=== PATIENT | female | born 1940 | race Caucasian/White ===

== ENCOUNTER → 2016-10-09 | Outpatient (CLI) | payer MEDICARE, OTHER ==
--- NOTE | 2016-10-10 20:28 | CT ---
Procedure: CT SINUSES WITHOUT IV CONTRAST Exam Date: 10/09/2016 1:37 PM CDT Ordering Provider: ADOLFO CARTER Clinical Indication: CHRONIC MAXILLARY SINUSITIS Comparison: None TECHNIQUE: Using a helical scanner, sequential axial imaging of the paranasal sinuses was obtained. 2-D coronal and sagittal reconstructed images were obtained. FINDINGS: The frontal sinuses are clear. The ethmoid air cells are clear bilaterally. The sphenoid sinuses are clear. There is mild frothy secretion seen within the right greater than left maxillary sinus. The maxillary sinuses are hypoplastic. There is a normal-appearing infundibulum and uncinate process, however there is a thin focus of soft tissue attenuation obstructing the right ostiomeatal unit best seen on coronal images 25-27. There is a thin region of patency seen within the left ostiomeatal unit. Small left greater than right miki bullosa within the middle turbinates. There is a slightly rightward deviating osseous as well as membranous nasal septum. The visualized portions of the middle ear cavities and mastoid air cells are clear bilaterally. There are no osseous lesions. IMPRESSION 1. Mild mucosal thickening seen within the right more so than left maxillary sinus with hypoplasia of the maxillary sinuses. Normal uncinate process and infundibulum yet there is soft tissue attenuation mildly obstructing the right ostiomeatal unit. 2. Remainder of the paranasal sinuses are well-aerated. 3. Mild rightward deviation of the osseous and membranous nasal septum. Electronically signed by: Krystian Myers MD 10/10/2016 8:28 PM CDT
== END ==
LOC: CT 13:27
PROVIDERS: ATTEND Otolaryngology Otolaryngology/Facial Plastic Surgery
DX: J32.0 Chronic maxillary sinusitis (principal)

== ENCOUNTER → 2016-12-14 | Outpatient (CLI) | payer MEDICARE, OTHER | END | disposition home or self-care (01) | LOC: GMAB 10:08 | PROVIDERS: ATTEND Family Medicine | DX: Z79.899 Other long term (current) drug therapy (principal) ==

== ENCOUNTER → 2017-03-03 | Outpatient (CLI) | payer MEDICARE, OTHER | LOC: MAMMO 08:02 | PROVIDERS: ATTEND Family Medicine | DX: Z12.31 Encounter for screening mammogram for malignant neoplasm of breast (principal) ==

== ENCOUNTER 2017-04-07 07:00 | Day surgery (SDC) | payer MEDICARE, OTHER ==
[~2017-04-07 07:00] MED LIST: LACTATED RINGERS 1,000 ML ONE
--- NOTE | 2017-04-07 08:55 | OP ---
DATE OF PROCEDURE: 04/07/17 PREPROCEDURE DIAGNOSIS: 1. Average risk colon cancer screening. POSTPROCEDURE DIAGNOSIS: 1. Diverticulosis. 2. Internal hemorrhoids. PROCEDURE: 1. Colonoscopy. SURGEON: Frandy Gupta MD. SEDATION: Monitored anesthesia care. ESTIMATED BLOOD LOSS: 0 mL. PROCEDURE: Informed consent was obtained prior to sedation. The preprocedure cardiopulmonary assessment was satisfactory. The patient was brought to the Endoscopy Suite and placed in the left lateral decubitus position. The patient was then sedated by the anesthesia team. Digital rectal exam revealed no abnormalities. The tip of the Olympus colonoscope was inserted into the rectum and advanced under direct visualization to the terminal ileum. The cecum was identified by the presence of the appendiceal orifice and ileocecal valve. Upon reaching the terminal ileum, the endoscope was slowly withdrawn from the patient with careful attention paid to the entire colonic mucosa for the identification of any flat polyps or small vascular lesions. There were no polyps seen in the entire colon. In the sigmoid colon, there were a few scattered diverticula. Retroflexed view of the anal verge showed small, non- bleeding internal hemorrhoids. Of note, pictures were not taken during this exam due to a malfunction of the endoscope whereby the image capture button was not functional. The endoscope was then withdrawn from the patient and the procedure terminated. RECOMMENDATION: 1. Discharge the patient home. 2. Resume regular diet. 3. Would not recommend further colorectal cancer screening given this patient's age and absence of polyps. #[id number] [facility]
[2017-04-07 10:40] VITALS: O2SAT 95
[2017-04-07 10:42] VITALS: BP 118/78; TEMP 97.4
[2017-04-07] MEDS ORDERED: LIDOCAINE 1% 10 ML VIAL INJ ONE (12:00)
[2017-04-07] MEDS ORDERED: PROPOFOL 200 MG/20 ML VIAL IV ONE (12:00)
== END 2017-04-07 09:20 | disposition home or self-care (01) ==
LOC: AMB 07:00
PROVIDERS: ATTEND Internal Medicine Gastroenterology
DX: Z12.11 Encounter for screening for malignant neoplasm of colon (principal); K57.30 Diverticulosis of large intestine without perforation or abscess without bleeding; K64.8 Other hemorrhoids; K21.9 Gastro-esophageal reflux disease without esophagitis; Z87.891 Personal history of nicotine dependence; Z79.899 Other long term (current) drug therapy
CPT/HCPCS: 00810; G0121; J3490; J7120

== ENCOUNTER → 2017-11-29 | Outpatient (CLI) | payer MEDICARE, OTHER ==
--- NOTE | 2017-11-29 09:28 | RAD ---
EXAM DESCRIPTION: Knee,Right Complete CLINICAL HISTORY: 76 years Female, KNEE PAIN TECHNIQUE:4 views of the right knee were performed. COMPARISON: None available. FINDINGS: The visualized bones appear well mineralized. No acute fracture or dislocation. No evidence of suprapatellar joint effusion. The soft tissues appear grossly unremarkable. Mild tricompartmental osteoarthritis. IMPRESSION: Mild tricompartmental osteoarthritis. Electronically signed by: Ember Huang MD 11/29/2017 9:27 AM CDT
--- NOTE | 2017-11-29 09:29 | RAD ---
EXAM DESCRIPTION: Pelvis CLINICAL HISTORY: 76 years Female, PELVIC PAIN COMPARISON: None. TECHNIQUE: AP radiograph of the pelvis was performed. FINDINGS: The pelvic ring appears grossly intact on this single AP radiograph. No acute fracture or dislocation. Bilateral sacroiliac joints appear normal. Mild osteoarthritis of bilateral hip joints. The visualized lumbo-sacral spine demonstrates mild degenerative changes. IMPRESSION: Single AP radiograph of the pelvis demonstrates grossly intact pelvic ring. Mild bilateral hip osteoarthritis. Electronically signed by: Ember Huang MD 11/29/2017 9:27 AM CDT
== END ==
LOC: RAD 07:40
PROVIDERS: ATTEND Orthopaedic Surgery
DX: M25.561 Pain in right knee (principal); M25.551 Pain in right hip; M17.11 Unilateral primary osteoarthritis, right knee; M16.0 Bilateral primary osteoarthritis of hip

== ENCOUNTER → 2017-12-16 | Outpatient (CLI) | payer MEDICARE, OTHER | LOC: GMATM 17:54 | PROVIDERS: ATTEND Nurse Practitioner Family | DX: R10.13 Epigastric pain (principal) ==

== ENCOUNTER → 2018-03-07 | Outpatient (CLI) | payer MEDICARE, OTHER ==
--- NOTE | 2018-03-09 08:37 | MAM ---
EXAM DESCRIPTION: 3D Screening BILATERAL : Digital Mammography. CLINICAL HISTORY: 77 years Female SCREENING . No personal history or family history of breast cancer. Childbirth. Postmenopausal. No HRT.. Lifetime risk of developing breast cancer (Tyrer-Cuzick model) is 2.2 %. COMPARISON: Screening bilateral digital breast tomosynthesis 03/03/2017. TECHNIQUE: Bilateral CC and MLO projection full-field images, Digital tomosynthesis mammographic technique. Bilateral digital 2-D full-field MLO images. CAD not utilized. FINDINGS: The breast parenchymal density pattern is: Scattered areas of fibroglandular density. No skin thickening or nipple retraction. Right axillary lymph node. Bilateral solitary microcalcifications. No new focal, stellate mass or density, focal asymmetry , and no suspicious microcalcifications bilaterally. Stable mammograms compared to prior study. IMPRESSION: Benign exam BIRAD CATEGORY: 2 BENIGN FINDINGS RECOMMENDATIONS: FOLLOW UP: Routine digital bilateral screening, one year interval from February 2018. Written communication explaining the IMPRESSION and follow-up, will be mailed to the patient and referring health care provider. According to the [employer], yearly mammograms are recommended starting at age 40 and continuing as long as a woman is in good health. Any breast change noted on a breast self-exam should be reported promptly to the patient's healthcare provider. Breast MRI is recommended for women with an approximately 20-25% or greater lifetime risk of breast cancer, including women with a strong family history of breast or ovarian cancer and women who have been treated for Hodgkin's disease. A negative mammographic report should not delay tissue diagnosis in patients with significant clinical history or physical findings. Extremely dense breast tissue limits the sensitivity of digital mammography. Electronically signed by: Zuhair Anderson MD 03/09/2018 8:35 AM CDT
== END ==
LOC: MAMMO 10:00
PROVIDERS: ATTEND Family Medicine
DX: Z12.31 Encounter for screening mammogram for malignant neoplasm of breast (principal)

== ENCOUNTER → 2018-03-21 | Outpatient (CLI) | payer MEDICARE, OTHER ==
--- NOTE | 2018-03-21 09:25 | RAD ---
EXAM DESCRIPTION: Hip,Right 2 Views CLINICAL HISTORY: 77 years Female, HIP PAIN COMPARISON: None available. FINDINGS: The visualized bones are well-mineralized.No acute fracture or dislocation. The right humeral head is well contained within the acetabular fossa. Mild osteoarthritic changes of the right hip joint noted. The soft tissues appear grossly unremarkable. IMPRESSION: 1. No acute fracture or dislocation. 2. Mild right hip osteoarthritis. Electronically signed by: Giuseppe García MD 03/21/2018 9:23 AM CDT
--- NOTE | 2018-03-21 09:28 | RAD ---
EXAM DESCRIPTION: Pelvis CLINICAL HISTORY: 77 years Female, HIP PAIN COMPARISON: None. TECHNIQUE: AP radiograph of the pelvis was performed. FINDINGS: The pelvic ring appears grossly intact on this single AP radiograph. No acute fracture or dislocation. Bilateral hip joints appear normal. The visualized lumbo-sacral spine demonstrates mild degenerative changes. Mild bilateral SI joint osteoarthritic changes noted. IMPRESSION: 1.Single AP radiograph of the pelvis demonstrates grossly intact pelvic ring. Mild bilateral hip joint osteoarthritic changes noted. Electronically signed by: Giuseppe García MD 03/21/2018 9:26 AM CDT
== END ==
LOC: RAD 08:32
PROVIDERS: ATTEND Orthopaedic Surgery
DX: M25.551 Pain in right hip (principal); M16.0 Bilateral primary osteoarthritis of hip

== ENCOUNTER → 2018-03-22 | Outpatient (CLI) | payer MEDICARE, OTHER ==
--- NOTE | 2018-03-22 11:29 | MRI ---
MRI right hip without contrast INDICATION: Bursitis right hip, hip pain TECHNIQUE: Noncontrast MR imaging right hip FINDINGS: No osteonecrosis or fracture in the right hip. Mild enthesophytes in both greater trochanters. Advanced degenerative disc disease L5-S1. Severe right and moderate left greater trochanteric bursitis. There is tendinopathy with partial tearing of the gluteal tendons the right hip without complete retraction associated with the trochanteric bursitis. There is interstitial fissuring and tendinosis of the proximal hamstring tendons with chronic interstitial partial tears. No complete detachment or retraction. Degenerative labral changes are noted in the anterior superior aspect of the right hip with adjacent chondrosis. Gluteal disruption is most pronounced in the gluteus minimus on the sagittal images right hip. IMPRESSION: Severe right greater trochanteric bursitis and moderate left Interstitial partial tears and tendinosis of the hamstring and gluteal tendons Degenerative tear and adjacent chondrosis anterior superior labrum right hip without displacement No fracture or osteonecrosis Advanced degenerative disc disease L5-S1 Electronically signed by: Clayton Whitaker MD 03/22/2018 11:28 AM CDT
== END ==
LOC: MRI 10:00
PROVIDERS: ATTEND Orthopaedic Surgery
DX: M70.71 Other bursitis of hip, right hip (principal); S76.311A Strain of muscle, fascia and tendon of the posterior muscle group at thigh level, right thigh, initial encounter; M51.37 Other intervertebral disc degeneration, lumbosacral region

== ENCOUNTER → 2018-06-30 | Outpatient (CLI) | payer MEDICARE, OTHER ==
--- NOTE | 2018-06-30 16:23 | CT ---
EXAM DESCRIPTION: Abdomen w/o Contrast CLINICAL HISTORY: 77 years Female, generalized abdominal pain. COMPARISON: CT abdomen pelvis dated March 10, 2012. TECHNIQUE: Contiguous 2.5 mm axial images were obtained from above the diaphragm to below the kidney level without the use of oral or intravenous contrast material. Reformatted coronal and sagittal images were obtained and reviewed. FINDINGS: The visualized lower thorax demonstrates interval development of punctate noncalcified groundglass nodular and tree-in-bud airspace opacities in the right lung especially involving the lateral segment of the right middle lobe as well as the inferior lingular region concerning for infectious/inflammatory etiology. A punctate noncalcified 4 mm nodular opacities also noted in the superior segment of right lower lobe.s no evidence of pleural or pericardial effusion. Limited evaluation of the solid abdominal organs due to lack of intravenous contrast. The liver appears grossly unremarkable with no intrahepatic ductal dilatation. The gallbladder is surgically absent. The spleen, pancreas and both adrenal glands appear grossly unremarkable. Both kidneys appear symmetric in size with no evidence of hydronephrosis, hydroureter or perinephric fluid collections. A 5 mm nonobstructing intrarenal stone is noted in the lower pole of left kidney. Mild fullness of the left renal pelvis noted with no evidence of blayne hydronephrosis. A small hiatal hernia noted. The stomach is collapsed. The visualized small and large bowel loops appear grossly unremarkable with no abnormal dilatation or wall thickening. No free intraperitoneal air or fluid. No enlarged abdominal or retroperitoneal lymphadenopathy. A 3.7 cm anterior abdominal wall defect is noted at the umbilicus level with focal fat herniation. No evidence of bowel herniation or obstruction. The abdominal aorta is nonaneurysmal with moderate atherosclerotic calcifications. Review of the bone windows demonstrate no acute osseous abnormality. Diffuse osteopenia of the visualized bones noted. IMPRESSION: 1. 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 2. No acute intra-abdominal process. 3. 5 mm nonobstructing intrarenal stone in the lower pole of left kidney with no evidence of hydronephrosis. 4. 3.7 cm anterior abdominal wall defect at the umbilicus level with focal fat herniation. No evidence of bowel herniation or strangulation. Electronically signed by: Giuseppe García MD 06/30/2018 4:22 PM [employer]
== END ==
LOC: CT 14:56
PROVIDERS: ATTEND Family Medicine
DX: R10.816 Epigastric abdominal tenderness (principal); R10.32 Left lower quadrant pain; N20.0 Calculus of kidney; R91.8 Other nonspecific abnormal finding of lung field